=== PATIENT | male | born 1960 | race Caucasian/White ===

== ENCOUNTER 2017-01-21 02:10 | Inpatient (IN) ==
[2017-01-21 03:17] LABS: Albumin 4.4 G/DL (3.4-5.0); Bilirubin,Total 0.5 MG/DL (0.2-1.0); Calcium 8.8 MG/DL (8.5-10.1); Magnesium 1.7 MG/DL (1.8-2.4); Osmolality,Calculated 278.4 MOS/KG (273-304); Potassium 3.2 MMOL/L (3.5-5.1); Total Protein 7.6 G/DL (6.4-8.3)
[2017-01-21 03:36] LABS: Basophils % 0.2 % (0.0-0.8); Eosinophils # 0.1 10*3/uL (0.0-0.87); Eosinophils % 0.6 % (0.00-10.9); Hematocrit 38.4 VOL% (42.0-52.0); Hemoglobin 14.7 GM/DL (14.0-18.0); Immature Granulocytes % 0.6 %; Immature Granulocytes Absolute 0.05 #; Lymphocytes # 0.6 10*3/uL (1.4-4.0); Lymphocytes % 7.7 % (21.2-54.2); Mean Corpuscular HGB Conc 38.3 GM/DL (32-36); Mean Corpuscular Hemoglobin 35 PG (27-34); Mean Corpuscular Volume 90.1 FL (87-102); Mean Platelet Volume 11.9 FL (9.6-12.0); Monocytes # 0.5 10*3/uL (0.11-0.8); Neutrophils # 6.8 10*3/uL (1.4-7.4); Neutrophils % 84.9 % (38.7-73.9); Platelet Count 126 T/CUMM (130-400); Red Blood Count 4.26 MC/CUMM (3.8-5.5); White Blood Count 8.1 T/CUMM (4-12)
[2017-01-21 03:42] LABS: Lactic Acid 2.2 MMOL/L (0.4-2.0)
[2017-01-21] MEDS ORDERED: MAGNESIUM SULF RIDER 2 GM in PREMIX 1 EACH IV STA (03:55)
[2017-01-21] MEDS ORDERED: POTASSIUM CHLORIDE 20 MEQ TABLET PO STA (03:55)
[2017-01-21] MEDS ORDERED: POTASSIUM CHLORIDE 20 MEQ TABLET PO ONE (04:14)
[2017-01-21] MEDS ORDERED: MAGNESIUM SULF RIDER 50 ML IV ONE (04:14)
[2017-01-21] MEDS ORDERED: CLINDAMYCIN INJ 900 MG in PREMIX 1 EACH IV ONE (04:26)
[2017-01-21] MEDS ORDERED: ONDANSETRON 4 MG/2 ML VIAL IV PRN (04:29)
[2017-01-21] MEDS ORDERED: HYDROmorphone 2 MG/1 ML VIAL IV PRN (04:29)
[2017-01-21] MEDS ORDERED: ACETAMINOPHEN 325 MG TABLET PO PRN (04:29)
[2017-01-21] MEDS ORDERED: CLINDAMYCIN INJ 0 ML IV ONE (04:32)
[2017-01-21 04:55] LABS: PT Patient Result 10.1 SECS
[2017-01-21] MEDS ORDERED: CLINDAMYCIN INJ 50 ML IV ONE ×2 (05:25→07:06)
[2017-01-21] MEDS ORDERED: BUPIVACAINE 0.5% /EPI 10 ML VIAL ONE (06:48)
[2017-01-21] MEDS ORDERED: BUPIVACAINE 0.25% 50 ML VIAL ONE (06:48)
[2017-01-21] MEDS ORDERED: SILVER NITRATE STICK 1 EACH TOP ONE (06:48)
[2017-01-21] MEDS ORDERED: fentaNYL 100 MCG/2 ML VIAL ONE (08:07)
[2017-01-21] MEDS ORDERED: MIDAZOLAM 2 MG/2 ML VIAL ONE (08:07)
[2017-01-21] MEDS ORDERED: ONDANSETRON 4 MG/2 ML VIAL ONE (08:07)
[2017-01-21] MEDS ORDERED: PROPOFOL 200 MG/20 ML VIAL IV ONE (08:07)
[2017-01-21] MEDS ORDERED: DESFLURANE 1 UNIT/15 MINUTE INH ONE (08:07)
[2017-01-21] MEDS ORDERED: GLYCOPYRROLATE 0.4 MG/2 ML VIAL ONE (08:08)
[2017-01-21] MEDS ORDERED: NEOSTIGMINE 10 MG/10 ML VIAL ONE (08:08)
[2017-01-21] MEDS ORDERED: SODIUM CHLORIDE 0.9% 1,000 ML IV ONE (08:08)
[2017-01-21] MEDS ORDERED: ROCURONIUM 100 MG/10 ML VIAL IV ONE (08:08)
[2017-01-21] MEDS ORDERED: INFLUENZA VIRUS VACCINE 0.5 ML SYRINGE IM ONE (09:24)
[2017-01-21] MEDS: SODIUM CHLORIDE 0.9% 1,000 ML IV SCH ×3 (11:00→21:32)
[2017-01-21] MEDS: PANTOPRAZOLE 40 MG VIAL IV SCH (11:00)
[2017-01-21] MEDS: amLODIPine 10 MG TABLET PO SCH (20:13)
[2017-01-21] MEDS: TACROLIMUS 0.5 MG CAPSULE PO SCH (21:31)
[2017-01-22] MEDS: SODIUM CHLORIDE 0.9% 1,000 ML IV SCH ×2 (02:17→05:07)
[2017-01-22 06:48] VITALS: BP 127/83
[2017-01-22] MEDS: PANTOPRAZOLE 40 MG VIAL IV SCH (09:03)
[2017-01-22] MEDS: amLODIPine 10 MG TABLET PO SCH (09:03)
[2017-01-22] MEDS: TACROLIMUS 0.5 MG CAPSULE PO SCH (09:03)
== END 2017-01-22 09:25 | disposition home or self-care (01) | DRG 394 ==
LOC: N.ED 02:10 → N.EDINP 04:29 → N.3E 05:17
PROVIDERS: ADMIT Specialist; ATTEND Specialist